=== PATIENT | male | born 1975 | race Caucasian/White ===

== ENCOUNTER 2021-11-15 15:11 | Observation (INO) ==
--- NOTE | 2021-11-15 15:45 | Emergency Department Note ---
Impression & Plan Pneumothorax on right, Fracture, rib, Fall ED Provider Note NAME: KEELY JAIME AGE: 46 SEX: M : 1975 ARRIVES VIA: Walk-In INFORMANT: Patient, ED PROVIDER(S): Doug Landry DO CHIEF COMPLAINT: Chest pain the patient is a 46-year-old male who presented to the emergency department for an evaluation of chest pain. The patient has right-sided chest pain HPI: After a fall last evening. He was shoveling and fell onto his right side. He thinks he might of landed onto his elbow. The patient has very severe chest pain with any movement. He did see his outpatient doctor and had an x-ray which revealed a pneumothorax with a rib fracture. The patient was told to go to the emergency department. He states his pain is moderate to severe. He states his pain is worse with any movement or ambulation. He has never had similar symptoms in the past. He has no significant medical history. He does not have any headache or neck pain. He did not strike his head. He denies having any abdominal pain or back pain. The patient denies having any dizziness upon standing. He does not take blood thinners. ROS: See above HPI for pertinent positives & negatives. A total of 10 systems reviewed and were otherwise negative. PAST MEDICAL HISTORY: See Below PAST SURGICAL HISTORY: See Below FAMILY HISTORY: See Below SOCIAL HISTORY: See Below HOME MEDICATIONS: See Below ALLERGIES: See Below VITALS: See Below PHYSICAL EXAMINATION: GENERAL: The patient is awake and alert. He is somewhat anxious appearing. EYES: The conjunctivae are clear. The pupils are round and reactive. EARS, NOSE, MOUTH AND THROAT: The nose is without any evidence of any deformity. NECK: The neck is nontender and supple. RESPIRATORY: Splinting respirations were noted. Diminished breath sounds are noted in the entire right lung field. There was no tachypnea or conversational dyspnea. CARDIOVASCULAR: Regular rate and rhythm noted there no murmurs rubs or gallops normal S1 normal S2. GASTROINTESTINAL: The abdomen is soft. Abdomen is nontender. BACK: No midline tenderness or or step-off noted range of motion in flexion extension as well as rotation no signs of muscle spasm noted MUSCULOSKELETAL/EXTREMITIES: There is no evidence of gross deformity full range of motion is noted in the hips and shoulders. SKIN: There is no obvious evidence of any rash. There are no petechiae, pallor or cyanosis noted. NEUROLOGIC: Patient is awake alert and oriented x3. Gait was steady. MEDICAL DECISION MAKING: The patient is a 46-year-old male who presented to the emergency department for an evaluation of chest pain. The patient was diagnosed as an outpatient with a pneumothorax. He had a fall last evening. He was not found to be hypotensive. He has no abdominal pain. I repeated his x-ray here and he does have a significant traumatic pneumothorax with a rib fracture. For this reason I consulted with general surgery. They have agreed to evaluate the patient in the emergency department likely for chest tube and further management. I discussed this plan with the patient and he was agreeable. Pain medicine and antibiotics were ordered. Triage Nursing notes reviewed. Prior medical records reviewed Vital Signs: reviewed and remarkable for elevated blood pressure. Differential diagnosis: Fracture, dislocation, contusion, intra-abdominal, pneumothorax, intrathoracic, intracranial, neurologic, compartment syndrome, rhabdomyolysis, as well as other pathologies. ER treatment provided: See below Diagnostics interpreted by me: ECG: none Cardiac Monitoring: An order was placed for continuous cardiac monitoring. The monitor shows a rate of 88 bpm with sinus rhythm. Laboratory studies: As stated above and show below. Imaging studies: See below Consultation(s): I discussed this case with Dr. Gonzalez who is on-call for general surgery. Past Med/Surg History Medical History (Updated 11/15/21 @ 17:22 by Suzie Marin PA-C) GERD (gastroesophageal reflux disease) Social History Smoking Status: Never smoker Preferred Language: Slovenian Feels Safe at Home: Yes Allergies Allergies Allergy/AdvReac Type Severity Reaction Status Date / Time No Known Allergies Allergy Unverified 11/15/21 17:41 Home Meds Home Medications Medication Instructions Recorded Confirmed pantoprazole 40 mg tablet,delayed 40 mg PO QAM 11/15/21 11/15/21 release Results & Data (ED) Vital Signs Vital Signs - 24 hr 11/15/21 15:16 Temperature 36.5 C Temperature Source Oral Pulse Rate 88 Pulse Rhythm Regular Pulse Strength Normal Respiratory Rate 16 Respiratory Effort / Characteristics Non-Labored Respiratory Depth Normal Blood Pressure 166/98 H Blood Pressure Mean 120 Pulse Oximetry 96 Oxygen Delivery Method Room Air Sepsis Recent Fever Within 48 Hours No Sepsis New/Unexplained Change in Mental Status No Sepsis Action Taken by Nursing No Action Required Home Medications Current Medication List: was personally reviewed by me Laboratory Data Attestation: I reviewed the patient's lab results. Result diagrams: 11/15/21 15:44 11/15/21 15:44 Lab Results 11/15/21 11/15/21 11/15/21 Range/Units 15:44 15:44 15:44 WBC 10.18 (4.8-10.8) K/uL RBC 4.80 (4.7-6.1) M/uL Hgb 15.1 (14.0-18.0) g/dL Hct 44.3 (42-52) % MCV 92.3 (80-100) fL MCH 31.5 (25-34) pg MCHC 34.1 (32-36) g/dL RDW Std Deviation 41.6 (36.4-46.3) fL RDW Coeff of Ligia 12.4 (11.5-14.5) % Plt Count 271 (130-400) K/uL MPV 9.4 (7.4-10.4) fL Immature Gran % (Auto) 0.4 % Neut % (Auto) 71.7 % Lymph % (Auto) 19.2 % Cook % (Auto) 7.9 % Eos % (Auto) 0.6 % Baso % (Auto) 0.2 % Neut # (Auto) 7.31 H (1.4-6.5) K/uL Lymph # (Auto) 1.95 (1.2-3.4) K/uL [place] # (Auto) 0.80 H (0.11-0.59) K/uL Eos # (Auto) 0.06 (0-0.5) K/uL Baso # (Auto) 0.02 (0-0.2) K/uL Immature Gran # (Auto) 0.04 H (0.00-0.02) K/uL PT 10.1 (9.0-12.0) Seconds INR 1.0 (0.9-1.1) APTT 25.9 (21.0-31.0) Seconds PTT Ratio 1.0 Sodium 138 (136-145) mmol/L Potassium 3.7 (3.5-5.1) mmol/L Chloride 104 (98-107) mmol/L Carbon Dioxide 27 (21-32) mmol/L Anion Gap 7 (3-11) BUN 11 (6-23) mg/dl Creatinine 1.01 (0.6-1.4) mg/dl Est Cr Clr Drug Dosing 104.8 ml/min Est GFR ( Amer) 101.5 ml/min Est GFR (Non-Af Amer) 87.5 ml/min BUN/Creatinine Ratio 10.9 (10-20) Glucose 128 H (70-99(Fasting)) mg/dl Calcium 9.2 (8.5-10.1) mg/dl Magnesium 2.1 (1.7-2.4) mg/dl Total Bilirubin 0.6 (0.2-1.0) mg/dl AST 21 (13-39) U/L ALT 28 (7-52) U/L Alkaline Phosphatase 75 (34-104) U/L Troponin I < 0.03 (0-0.04) ng/ml Total Protein 7.4 (6.0-8.3) gm/dl Albumin 4.4 (3.4-5.0) gm/dl Globulin 3.0 (2.5-4.0) gm/dl Albumin/Globulin Ratio 1.5 (0.9-2) SARS-CoV-2, RNA, NAAT (NEGATIVE) 11/15/21 Range/Units 16:26 WBC (4.8-10.8) K/uL RBC (4.7-6.1) M/uL Hgb (14.0-18.0) g/dL Hct (42-52) % MCV (80-100) fL MCH (25-34) pg MCHC (32-36) g/dL RDW Std Deviation (36.4-46.3) fL RDW Coeff of Ligia (11.5-14.5) % Plt Count (130-400) K/uL MPV (7.4-10.4) fL Immature Gran % (Auto) % Neut % (Auto) % Lymph % (Auto) % [place] % (Auto) % Eos % (Auto) % Baso % (Auto) % Neut # (Auto) (1.4-6.5) K/uL Lymph # (Auto) (1.2-3.4) K/uL [place] # (Auto) (0.11-0.59) K/uL Eos # (Auto) (0-0.5) K/uL Baso # (Auto) (0-0.2) K/uL Immature Gran # (Auto) (0.00-0.02) K/uL PT (9.0-12.0) Seconds INR (0.9-1.1) APTT (21.0-31.0) Seconds PTT Ratio Sodium (136-145) mmol/L Potassium (3.5-5.1) mmol/L Chloride (98-107) mmol/L Carbon Dioxide (21-32) mmol/L Anion Gap (3-11) BUN (6-23) mg/dl Creatinine (0.6-1.4) mg/dl Est Cr Clr Drug Dosing ml/min Est GFR ( Amer) ml/min Est GFR (Non-Af Amer) ml/min BUN/Creatinine Ratio (10-20) Glucose (70-99(Fasting)) mg/dl Calcium (8.5-10.1) mg/dl Magnesium (1.7-2.4) mg/dl Total Bilirubin (0.2-1.0) mg/dl AST (13-39) U/L ALT (7-52) U/L Alkaline Phosphatase (34-104) U/L Troponin I (0-0.04) ng/ml Total Protein (6.0-8.3) gm/dl Albumin (3.4-5.0) gm/dl Globulin (2.5-4.0) gm/dl Albumin/Globulin Ratio (0.9-2) SARS-CoV-2, RNA, NAAT NEGATIVE (NEGATIVE) Administered Medications Morphine Sulfate (Morphine Sulfate 4 Mg/Ml 1 Ml Carp\Vial) 4 mg IV Q30M PRN PRN Reason: Pain Stop: 11/29/21 15:57 Last Admin: 11/15/21 17:03 Dose: 4 mg Documented by: [id number] Discontinued Medications Lidocaine HCl (Lidocaine 1% Local 20 Ml Vial) Confirm Administered Dose 20 ml .ROUTE .STK-MED ONE Stop: 11/15/21 16:28 Last Admin: 11/15/21 17:02 Dose: 20 ml Documented by: [id number] Ondansetron HCl (Ondansetron Inj 2 Mg/Ml 2 Ml Vial) 4 mg IV NOW STA Stop: 11/15/21 15:59 Last Admin: 11/15/21 17:02 Dose: 4 mg Documented by: [id number] Imaging Data Radiologist's Impression: Chest X-Ray 11/15/21 15:20 SINGLE VIEW CHEST CLINICAL HISTORY: Dyspnea. FINDINGS: An AP, portable, upright chest radiograph is obtained. No prior studi es are available for comparison at the time of dictation. The cardiomediastinal silhouette is unremarkable. There is a moderate to large right pneumothorax with 5.5 cm of apical pleural separation. No left-sided pneumothorax is seen. Airspace opacities are seen at the right lung base. No large pleural effusion is identified. The left lung appears clear. Question a right anterolateral 9th rib fracture. IMPRESSION: 1. Moderate to large right pneumothorax. 2. Airspace opacities at the right lung base could represent atelectasis versus a mild infectious/inflammatory pneumonitis. 3. Left lung appears clear. 4. Question a right anterolateral 9th rib fracture. ACT 112: Negative or not required by law. Electronically signed by: Humberto Leal M.D. 11/15/2021 3:53 PM Discharge Plan Visit Data Patient Disposition: Being Evaluated by Surgeon Forms Stand Alone Forms: [facility] Prescriptions Prescriptions: No Action pantoprazole 40 mg tablet,delayed release (DR/EC) 40 mg PO QAM RF: 0 Referrals Referrals: PCP,NO [Primary Care Provider] - Discharge Problem: Fracture, rib Qualifiers: Encounter type: initial encounter Rib fracture type: single rib Fracture type: closed Laterality: right Qualified Code(s): S22.31XA - Fracture of one rib, right side, initial encounter for closed fracture Fall Qualifiers: Encounter type: initial encounter Qualified Code(s): W19.XXXA - Unspecified fall, initial encounter
--- NOTE | 2021-11-15 15:54 | XRay Report ---
SINGLE VIEW CHEST CLINICAL HISTORY: Dyspnea. FINDINGS: An AP, portable, upright chest radiograph is obtained. No prior studies are available for c omparison at the time of dictation. The cardiomediastinal silhouette is unremarkable. There is a mod erate to large right pneumothorax with 5.5 cm of apical pleural separation. No left-sided pneumothora x is seen. Airspace opacities are seen at the right lung base. No large pleural effusion is identifie d. The left lung appears clear. Question a right anterolateral 9th rib fracture. IMPRESSION: 1. Moderate to large right pneumothorax. 2. Airspace opacities at the right lung base could represent atelectasis versus a mild infectious/inf lammatory pneumonitis. 3. Left lung appears clear. 4. Question a right anterolateral 9th rib fracture. ACT 112: Negative or not required by law. Electronically signed by: Humberto Leal M.D. 11/15/2021 3:53 PM
[2021-11-15] MEDS ORDERED: ceFAZolin 2000MG 2,000 MG/15 ML SYR IV STA (15:56)
[2021-11-15] MEDS ORDERED: ONDANSETRON INJ 2 MG/ML 2 ML VIAL IV STA (15:58)
[2021-11-15] MEDS ORDERED: MoRPHine SULFATE 4 MG/ML 1 ML CARP\\VIAL IV PRN (15:58)
[2021-11-15 15:59] LABS: Basophils # (auto) 0.02 K/uL (0-0.2); Basophils % (auto) 0.2 %; Eosinophils # (auto) 0.06 K/uL (0-0.5); Eosinophils % (auto) 0.6 %; Hematocrit (blood only) 44.3 % (42-52); Hemoglobin 15.1 g/dL (14.0-18.0); Immature Granulocytes # (auto) 0.04 K/uL (0.00-0.02); Immature Granulocytes % (auto) 0.4 %; Lymphocytes # (auto) 1.95 K/uL (1.2-3.4); Lymphocytes % (auto) 19.2 %; Mean Corpuscular Hemoglobin 31.5 pg (25-34); Mean Corpuscular Hgb Conc 34.1 g/dL (32-36); Mean Corpuscular Volume 92.3 fL (80-100); Mean Platelet Volume 9.4 fL (7.4-10.4); Monocytes % (auto) 7.9 %; Neutrophils # (auto) 7.31 K/uL (1.4-6.5); Neutrophils % (auto) 71.7 %; Platelet Count 271 K/uL (130-400); RDW Coefficient of Variation 12.4 % (11.5-14.5); RDW Standard Deviation 41.6 fL (36.4-46.3); White Blood Count 10.18 K/uL (4.8-10.8)
--- NOTE | 2021-11-15 16:00 | History & Physical Report ---
Date of Service November 15, 2021 Assessment & Plan (1) Pneumothorax on right: (2) Fracture, rib: (3) Fall: Plan: 46 year-old male s/p fall onto right side while shoveling snow last evening. Chest xray showing moderate to large right pneumothorax with possible right 9th rib fracture. Hemodynamically stable. Plan: Discussed xray findings with patient showing right sided pneumothorax being moderate to large size. Need for right thoracostomy placement under local anesthesia. Dr. Gonzalez discussed procedure and risks and informed consent obtained He will be admitted for observation and chest tube will be hooked to suction for at least 24 hours and re-evaluated tomorrow morning with xray. Dr. Gonzalez has seen and examined pt, obtained consent agrees with above. History of Present Illness Chief Complaint: s/p fall last evening, right sided chest pain Primary Care Provider: NO PCP 46 year-old male who was shoveling snow last night and fell on ice onto his right side and elbow. States he had sudden change of voice and pain but no significant shortness of breath. Was able to sleep last night and went to his primary care doctor who ordered chest xray which showed rib fracture and pneumothorax. He presents here for further treatment. Never had anything like this before. No prior chest surgery or lung procedures. Denies of any history of spontaneous pneumothorax. Denies of any bleeding disorders. Allergies Allergy/AdvReac Type Severity Reaction Status Date / Time No Known Allergies Allergy Unverified 11/15/21 17:22 Past Med/Surg History Medical History (Updated 11/15/21 @ 17:22 by Suzie Marin PA-C) GERD (gastroesophageal reflux disease) Social History Smoking Status: Never smoker Preferred Language: [place] Islander Feels Safe at Home: Yes Physical Exam Constitutional: WD/WN, vitals as above no acute distress and not ill appearing Neck: normal visual inspection and trachea midline Respiratory: normal respiratory effort; no respiratory distress, no labored breathing and no retractions Auscultation: + diminished lung sounds (Right upper lung ) Cardiovascular: RRR, no murmur, no edema Chest (Breasts): Chest: normal inspection of chest (no ecchymosis of the right chest wall) Gastrointestinal (Abdomen): Inspection/Auscultation: abdomen normal to inspection; abdomen not distended Percussion/Palpation: abdomen soft; abdomen nontender, no guarding and abdomen not rigid Skin: no rashes, warm and dry Psychiatric: A+Ox3, euthymic affect Results & Data Results & Data ([facility]) Vital Signs (Past 12 Hours) Vital Signs Temp Pulse Resp BP Pulse Ox 11/15/21 15:16 36.5 C 88 16 166/98 H 96 Laboratory Results 11/15/21 11/15/21 11/15/21 Range/Units 16:26 15:44 15:44 WBC (4.8-10.8) K/uL RBC (4.7-6.1) M/uL Hgb (14.0-18.0) g/dL Hct (42-52) % MCV (80-100) fL MCH (25-34) pg MCHC (32-36) g/dL RDW Std Deviation (36.4-46.3) fL RDW Coeff of Ligia (11.5-14.5) % Plt Count (130-400) K/uL MPV (7.4-10.4) fL Immature Gran % (Auto) % Neut % (Auto) % Lymph % (Auto) % [place] % (Auto) % Eos % (Auto) % Baso % (Auto) % Neut # (Auto) (1.4-6.5) K/uL Lymph # (Auto) (1.2-3.4) K/uL [place] # (Auto) (0.11-0.59) K/uL Eos # (Auto) (0-0.5) K/uL Baso # (Auto) (0-0.2) K/uL Immature Gran # (Auto) (0.00-0.02) K/uL PT 10.1 (9.0-12.0) Seconds INR 1.0 (0.9-1.1) APTT 25.9 (21.0-31.0) Seconds PTT Ratio 1.0 Sodium 138 (136-145) mmol/L Potassium 3.7 (3.5-5.1) mmol/L Chloride 104 (98-107) mmol/L Carbon Dioxide 27 (21-32) mmol/L Anion Gap 7 (3-11) BUN 11 (6-23) mg/dl Creatinine 1.01 (0.6-1.4) mg/dl Est Cr Clr Drug Dosing 104.8 ml/min Est GFR ( Amer) 101.5 ml/min Est GFR (Non-Af Amer) 87.5 ml/min BUN/Creatinine Ratio 10.9 (10-20) Glucose 128 H (70-99(Fasting)) mg/dl Calcium 9.2 (8.5-10.1) mg/dl Magnesium 2.1 (1.7-2.4) mg/dl Total Bilirubin 0.6 (0.2-1.0) mg/dl AST 21 (13-39) U/L ALT 28 (7-52) U/L Alkaline Phosphatase 75 (34-104) U/L Troponin I < 0.03 (0-0.04) ng/ml Total Protein 7.4 (6.0-8.3) gm/dl Albumin 4.4 (3.4-5.0) gm/dl Globulin 3.0 (2.5-4.0) gm/dl Albumin/Globulin Ratio 1.5 (0.9-2) SARS-CoV-2, RNA, NAAT NEGATIVE (NEGATIVE) 11/15/21 Range/Units 15:44 WBC 10.18 (4.8-10.8) K/uL RBC 4.80 (4.7-6.1) M/uL Hgb 15.1 (14.0-18.0) g/dL Hct 44.3 (42-52) % MCV 92.3 (80-100) fL MCH 31.5 (25-34) pg MCHC 34.1 (32-36) g/dL RDW Std Deviation 41.6 (36.4-46.3) fL RDW Coeff of Ligia 12.4 (11.5-14.5) % Plt Count 271 (130-400) K/uL MPV 9.4 (7.4-10.4) fL Immature Gran % (Auto) 0.4 % Neut % (Auto) 71.7 % Lymph % (Auto) 19.2 % [place] % (Auto) 7.9 % Eos % (Auto) 0.6 % Baso % (Auto) 0.2 % Neut # (Auto) 7.31 H (1.4-6.5) K/uL Lymph # (Auto) 1.95 (1.2-3.4) K/uL [place] # (Auto) 0.80 H (0.11-0.59) K/uL Eos # (Auto) 0.06 (0-0.5) K/uL Baso # (Auto) 0.02 (0-0.2) K/uL Immature Gran # (Auto) 0.04 H (0.00-0.02) K/uL PT (9.0-12.0) Seconds INR (0.9-1.1) APTT (21.0-31.0) Seconds PTT Ratio Sodium (136-145) mmol/L Potassium (3.5-5.1) mmol/L Chloride (98-107) mmol/L Carbon Dioxide (21-32) mmol/L Anion Gap (3-11) BUN (6-23) mg/dl Creatinine (0.6-1.4) mg/dl Est Cr Clr Drug Dosing ml/min Est GFR ( Amer) ml/min Est GFR (Non-Af Amer) ml/min BUN/Creatinine Ratio (10-20) Glucose (70-99(Fasting)) mg/dl Calcium (8.5-10.1) mg/dl Magnesium (1.7-2.4) mg/dl Total Bilirubin (0.2-1.0) mg/dl AST (13-39) U/L ALT (7-52) U/L Alkaline Phosphatase (34-104) U/L Troponin I (0-0.04) ng/ml Total Protein (6.0-8.3) gm/dl Albumin (3.4-5.0) gm/dl Globulin (2.5-4.0) gm/dl Albumin/Globulin Ratio (0.9-2) SARS-CoV-2, RNA, NAAT (NEGATIVE) Diagnostic Findings SINGLE VIEW CHEST CLINICAL HISTORY: Dyspnea. FINDINGS: An AP, portable, upright chest radiograph is obtained. No prior studies are available for comparison at the time of dictation. The cardiomediastinal silhouette is unremarkable. There is a moderate to large right pneumothorax with 5.5 cm of apical pleural separation. No left-sided pneumothorax is seen. Airspace opacities are seen at the right lung base. No large pleural effusion is identified. The left lung appears clear. Question a right anterolateral 9th rib fracture. IMPRESSION: 1. Moderate to large right pneumothorax. 2. Airspace opacities at the right lung base could represent atelectasis versus a mild infectious/inflammatory pneumonitis. 3. Left lung appears clear. 4. Question a right anterolateral 9th rib fracture. Code Status & VTE Plan VTE Prophylaxis Plan VTE Prophylaxis will be ordered: Yes (1) Fracture, rib Encounter type: initial encounter Fracture type: closed Laterality: right Rib fracture type: single rib Qualified Code(s): S22.31XA - Fracture of one rib, right side, initial encounter for closed fracture (2) Fall Encounter type: initial encounter Qualified Code(s): W19.XXXA - Unspecified fall, initial encounter
[2021-11-15 16:10] LABS: Partial Thromboplastin Time 25.9 Seconds (21.0-31.0); Prothrombin Time 10.1 Seconds (9.0-12.0)
[2021-11-15 16:22] LABS: Troponin I < 0.03 ng/ml (0-0.04)
[2021-11-15 16:23] LABS: Alanine Aminotransferase 28 U/L (7-52); Albumin Globulin Ratio 1.5 (0.9-2); Albumin Level 4.4 gm/dl (3.4-5.0); Alkaline Phosphatase 75 U/L (34-104); Anion Gap 7 (3-11); Aspartate Aminotransferase 21 U/L (13-39); BUN Creatinine Ratio 10.9 (10-20); Bilirubin,Total 0.6 mg/dl (0.2-1.0); Blood Urea Nitrogen 11 mg/dl (6-23); Calcium 9.2 mg/dl (8.5-10.1); Carbon Dioxide 27 mmol/L (21-32); Chloride 104 mmol/L (98-107); Creatinine Clr Calc Pharmacy 104.8 ml/min; Est GFR (African American) 101.5 ml/min; Est GFR (Non-African American) 87.5 ml/min; Glucose 128 mg/dl (70-99(Fasting)); Magnesium 2.1 mg/dl (1.7-2.4); Potassium 3.7 mmol/L (3.5-5.1); Sodium 138 mmol/L (136-145); Total Protein 7.4 gm/dl (6.0-8.3)
[2021-11-15] MEDS ORDERED: LIDOCAINE 1% LOCAL 20 ML VIAL ONE (16:27)
--- NOTE | 2021-11-15 17:24 | Operative Report ---
Post Operative Report Pre & Post Diagnosis Right sided pneumothorax I identified the patient and participated in the time-out.: Yes Procedure Right-sided chest tube placement Surgeon Thee Gonzalez MD Chemical Processing Supervisor none Estimated Blood Loss 2 Findings Consistent with Post-Op Diagnosis Reexpansion of the lung upon entry into thorax Specimens None Drains 20 [place] chest tube Anesthesia Type Local Complications No immediate complications Indications Right-sided pneumothorax Description of Procedure The patient was seen in the emergency department. Chest x-ray was reviewed which confirmed a large right sided pneumothorax. He was placed on the stretcher with his arm over his head. He was prepped and draped in the normal sterile fashion. 1% lidocaine was injected into and around the fifth intercostal space on the right side in the midaxillary line. Incision was made with a 15 blade scalpel and was carried into the subcutaneous tissue. I tunneled down to the fifth rib and entered the pleural space just above the fifth rib. A large alegre of air confirmed placement. I probed the pleural cavity with my index finger, and there were no adhesions noted in the thoracic cavity. A 20 [place] chest tube was threaded into the pleural space and secured with a #1 silk suture. The tube was hooked to the Pleur-evac suction device to 20 cm of wall suction. The tube was secured with an occlusive dressing to the chest wall. A chest x-ray is pending. He tolerated the procedure without complication. I attest to the content of the Intraoperative Record and any orders documented therein. Any exceptions are noted below.
--- NOTE | 2021-11-15 18:06 | XRay Report ---
XR chest 1V portable CLINICAL HISTORY: s/p right sided chest tube placement TECHNIQUE: Single frontal radiograph of the chest was obtained. Comparison: Comparison is made to chest one view 11/15/2021 FINDINGS: A right chest tube has been placed. The cardiomediastinal silhouette is normal. Stable faint right nannette ng base opacity. Resolution of right pneumothorax. IMPRESSION: Status post placement of right chest tube with interval resolution of right pneumothorax. ACT 112: Negative or not required by law. Electronically signed by: Bubba Zamorano M.D. 11/15/2021 6:05 PM
[2021-11-15] MEDS ORDERED: PROMETHAZINE HCL 12.5 MG in SODIUM CHLORIDE 0.9% 50 ML IV PRN (20:35)
[2021-11-15] MEDS ORDERED: KETOROLAC 30 MG/ML VIAL IV PRN (20:35)
[2021-11-15] MEDS ORDERED: oxyCODONE/ACETAMINOPHEN 5mg/325mg TAB PO PRN (20:35)
[2021-11-15] MEDS: MoRPHine SULFATE 2 MG/ML CARP IV PRN (21:05)
[2021-11-15] MEDS: ENOXAPARIN INJ 40 MG/0.4 ML SYR SQ SCH (21:49)
[2021-11-16] MEDS: ceFAZolin 2000MG 2,000 MG/15 ML SYR IV SCH ×3 (06:12→22:12)
--- NOTE | 2021-11-16 09:04 | XRay Report ---
XR chest 1V portable CLINICAL HISTORY: s/p placement of right thoracostomy tube TECHNIQUE: Single frontal radiograph of the chest was obtained. Comparison: Comparison is made to chest one view 11/15/2021 FINDINGS: Right chest tube is unchanged in position. Cardiomegaly is noted. Faint bibasilar airspace opacities are seen. No evidence of pleural effusion or pneumothorax. IMPRESSION: Stable position of right chest tube with the tip and side-port within the right thoracic cavity. No p neumothorax is seen. There are faint bilateral airspace opacities compatible with atelectasis with or without superimposed aspiration/pneumonia. ACT 112: Negative or not required by law. Electronically signed by: Bubba Zamorano M.D. 11/16/2021 9:03 AM
--- NOTE | 2021-11-16 09:30 | Surgery Progress Note ---
Date of Service November 16, 2021 Assessment & Plan (1) Pneumothorax on right: (2) Fracture, rib: (3) Fall: Plan: s/p placement of right thoracostomy tube at bedside CXR this am with resolution of pneumothorax afebrile, vss no air leak present Plan: Continue pain management as needed continue regular diet continue chest tube to wall suction may get up out of bed to chair and slowly ambulate room while maintaining chest tube to wall suction Discussed with Dr. Gonzalez who will evaluate patient later today. Admission and Anticipated Discharge Date Admission Date: November 15, 2021 Subjective feeling better, pain is controlled, had Percocet this morning no shortness of breath, able to take deep breaths with incentive spirometer no n,v, tolerating diet bored, wants to get up and move Physical Exam Constitutional: WD/WN, vitals as above no acute distress and not ill appearing Neck: normal visual inspection and trachea midline Respiratory: normal respiratory effort, lungs clear to auscultation normal respiratory effort; no respiratory distress, no labored breathing, no retractions and no cough Chest (Breasts): Additional Comments: Right thoracostomy tube present, dressing intact No air leak with deep breath no drainage in pleur-vac Skin: no rashes, warm and dry Psychiatric: A+Ox3, euthymic affect Results & Data ([facility]) Vital Signs (Past 12 Hours) Vital Signs Pulse Resp BP Pulse Ox Pulse Ox 11/16/21 08:00 78 16 119/84 95 11/16/21 04:00 70 14 129/94 93 11/16/21 00:00 82 17 120/83 92 11/15/21 21:58 85 20 157/104 H 94 11/15/21 21:57 94 Diagnostic Findings XR chest 1V portable CLINICAL HISTORY: s/p placement of right thoracostomy tube TECHNIQUE: Single frontal radiograph of the chest was obtained. Comparison: Comparison is made to chest one view 11/15/2021 FINDINGS: Right chest tube is unchanged in position. Cardiomegaly is noted. Faint bibasilar airspace opacities are seen. No evidence of pleural effusion or pneumothorax. IMPRESSION: Stable position of right chest tube with the tip and side-port within the right thoracic cavity. No pneumothorax is seen. There are faint bilateral airspace opacities compatible with atelectasis with or without superimposed aspiration/pneumonia. (1) Fracture, rib Encounter type: initial encounter Fracture type: closed Laterality: right Rib fracture type: single rib Qualified Code(s): S22.31XA - Fracture of one rib, right side, initial encounter for closed fracture (2) Fall Encounter type: initial encounter Qualified Code(s): W19.XXXA - Unspecified fall, initial encounter
--- NOTE | 2021-11-16 12:14 | Electrocardiogram Report ---
Test Reason : Blood Pressure : / mmHG Vent. Rate : 083 BPM Atrial Rate : 083 BPM P-R Int : 168 ms QRS Dur : 090 ms QT Int : 388 ms P-R-T Axes : 045 -14 013 degrees QTc Int : 455 ms Sinus rhythm with occasional Premature ventricular complexes Possible Left atrial enlargement Borderline ECG No previous ECGs available Confirmed by Manav Moore ([id number]) on 11/16/2021 12:13:40 PM Referred By: REFERRED SELF Confirmed By:Napoleon Moore
[2021-11-16] MEDS: ONDANSETRON INJ 2 MG/ML 2 ML VIAL IV PRN ×2 (16:04→21:23)
[2021-11-16] MEDS: ENOXAPARIN INJ 40 MG/0.4 ML SYR SQ SCH (21:22)
[2021-11-16] MEDS: MoRPHine SULFATE 2 MG/ML CARP IV PRN (21:23)
[2021-11-17] MEDS: ceFAZolin 2000MG 2,000 MG/15 ML SYR IV SCH (07:58)
--- NOTE | 2021-11-17 08:10 | XRay Report ---
XR chest 1V portable HISTORY: 46 years-old Male eval for pneumo, R thoracostomy tube off suction follow-up study in a pat ient with right-sided chest tube COMPARISON: Chest radiograph 11/16/2021 TECHNIQUE: AP view of the chest. FINDINGS: The cardiac silhouette is mildly enlarged. There is a right-sided chest tube with distal tip projecte d superior to the right hilum which appears unchanged. No definite pneumothorax or large pleural effu dena. Linear subsegmental bibasilar densities. The bones appear grossly intact. IMPRESSION: 1. Unchanged positioning of the right-sided chest tube. No pneumothorax identified. 2. Persistent bibasilar opacities suggestive of atelectasis. 3. Cardiomegaly. ACT 112: Negative or not required by law. The above report was generated using voice recognition software. It may contain grammatical, syntax o r spelling errors. Electronically signed by: Delroy Amato M.D. 11/17/2021 8:09 AM
--- NOTE | 2021-11-17 11:55 | XRay Report ---
XR chest 1V portable HISTORY: 46 years-old Male s/p removal of R chest tube follow-up study in a patient with recent righ t-sided chest tube removal COMPARISON: Chest radiograph of same day at 6:04 AM TECHNIQUE: Portable AP view of the chest FINDINGS: Status post removal of the right-sided chest tube. No pneumothorax identified. There is minimal subcu taneous emphysema of the right lateral chest wall. Cardiac silhouette is mildly enlarged. Mild right hemidiaphragmatic elevation with linear subsegmental bibasilar densities. No large pleural effusion. The bones appear grossly intact. IMPRESSION: 1. Status post removal of the right-sided chest tube. No pneumothorax identified. 2. Trace subcutaneous emphysema of the right lateral chest wall. 3. Mild subsegmental bibasilar densities redemonstrated suggestive of atelectasis. ACT 112: Negative or not required by law. The above report was generated using voice recognition software. It may contain grammatical, syntax o r spelling errors. Electronically signed by: Delroy Amato M.D. 11/17/2021 11:54 AM
--- NOTE | 2021-11-17 12:13 | Surgery Progress Note ---
Date of Service November 17, 2021 Assessment & Plan (1) Pneumothorax on right: (2) Fracture, rib: (3) Fall: Plan: s/p placement of right thoracostomy tube at bedside 11/15/2021 Off suction at 10 pm last evening, CXR this am showing no pneumothorax afebrile, vss no air leak present Plan: Right thoracostomy tube removed and occlusive dressing applied. repeat CXR showing no pneumo. Plan for discharge today discharge instructions reviewed Rx for Percocet as needed 1 week follow-up with Dr. Carlos Gonzalez has seen and examined pt, agrees with above. Admission and Anticipated Discharge Date Admission Date: November 15, 2021 Subjective pain controlled no shortness of breath since suction turned off at 10 pm getting irritable, wants to get out of bed and walk around tolerating diet Physical Exam Constitutional: WD/WN, vitals as above no acute distress and not ill appearing Neck: normal visual inspection and trachea midline Respiratory: normal respiratory effort; no respiratory distress, no labored breathing, no retractions and no cough Chest (Breasts): Additional Comments: Right Chest with thoracostomy tube present, intact dressing. No air leak on deep breath Skin: no rashes, warm and dry Psychiatric: A+Ox3, euthymic affect Results & Data ([facility]) Vital Signs (Past 12 Hours) Vital Signs Pulse Resp BP Pulse Ox 11/17/21 08:00 87 21 137/106 H 93 11/17/21 04:00 86 18 156/106 H 93 Diagnostic Findings XR chest 1V portable 0600 with R thoracostomy tube off suction HISTORY: 46 years-old Male eval for pneumo, R thoracostomy tube off suction follow-up study in a patient with right-sided chest tube COMPARISON: Chest radiograph 11/16/2021 TECHNIQUE: AP view of the chest. FINDINGS: The cardiac silhouette is mildly enlarged. There is a right-sided chest tube with distal tip projected superior to the right hilum which appears unchanged. No definite pneumothorax or large pleural effusion. Linear subsegmental bibasilar densities. The bones appear grossly intact. IMPRESSION: 1. Unchanged positioning of the right-sided chest tube. No pneumothorax identified. 2. Persistent bibasilar opacities suggestive of atelectasis. 3. Cardiomegaly. XR chest 1V portable s/p removal of Right thoracostomy tube HISTORY: 46 years-old Male s/p removal of R chest tube follow-up study in a patient with recent right-sided chest tube removal COMPARISON: Chest radiograph of same day at 6:04 AM TECHNIQUE: Portable AP view of the chest FINDINGS: Status post removal of the right-sided chest tube. No pneumothorax identified. There is minimal subcutaneous emphysema of the right lateral chest wall. Cardiac silhouette is mildly enlarged. Mild right hemidiaphragmatic elevation with linear subsegmental bibasilar densities. No large pleural effusion. The bones appear grossly intact. IMPRESSION: 1. Status post removal of the right-sided chest tube. No pneumothorax identified. 2. Trace subcutaneous emphysema of the right lateral chest wall. 3. Mild subsegmental bibasilar densities redemonstrated suggestive of atelectasis. (1) Fracture, rib Encounter type: initial encounter Fracture type: closed Laterality: right Rib fracture type: single rib Qualified Code(s): S22.31XA - Fracture of one rib, right side, initial encounter for closed fracture (2) Fall Encounter type: initial encounter Qualified Code(s): W19.XXXA - Unspecified fall, initial encounter
--- NOTE | 2021-11-18 17:26 | Discharge Summary ---
Date of Service November 18, 2021 Admission HPI Per Admitting Provider 46 year-old male who was shoveling snow last night and fell on ice onto his right side and elbow. States he had sudden change of voice and pain but no significant shortness of breath. Was able to sleep last night and went to his primary care doctor who ordered chest xray which showed rib fracture and pneumothorax. He presents here for further treatment. Never had anything like this before. No prior chest surgery or lung procedures. Denies of any history of spontaneous pneumothorax. Denies of any bleeding disorders. Principal Diagnosis Right-sided pneumothorax Discharge Data Allergies Allergy/AdvReac Type Severity Reaction Status Date / Time No Known Allergies Allergy Unverified 11/15/21 17:41 Consultations 11/15/21 15:56 Consult General Surgery Stat Hospital Course (1) Pneumothorax on right: (2) Fracture, rib: He presents the hospital 1 day following a fall. Chest x-ray demonstrated a large pneumothorax on the right side. A right-sided chest tube was placed in the emergency department, the details of which are dictated in a separate operative note. Post procedure x-ray demonstrated complete resolution of the pneumothorax. There is minimal air leak. He was kept on wall suction at 20 cm for over 24 hours and then switched to waterseal. Repeat chest x-ray 6 hours later demonstrated no return of the pneumothorax. The chest tube was pulled, and post x-ray demonstrated no pneumothorax on the right. Throughout his hospital stay, his diet was regular, his pain was controlled with IV and oral pain medications, DVT prophylaxis with SCD boots and Lovenox. By post procedure day 2, the chest tube was out, he had no pneumothorax, and he was discharged home in stable condition. He will follow up in clinic in 1 week. Total Time Total Time Spent Total Time Spent (In Minutes): 30 minutes Discharge Plan Discharge Items Patient Disposition: Home - Self-Care Reason For Visit: RIGHT PNEUMOTHORAX Discharge Diagnosis: Right pneumothorax Right rib fracture Activity: Per Instructions section Non-emergency contact: Primary Care Provider and Surgeon Call non-emergency contact if: you have any medication questions, your pain is not controlled, your pain is worsening, your pain is concerning for you, you have a fever, your temperature is above 101, your wound has increased redness, your wound has increased drainage and your wound pain has increased Follow-up/Referrals: PCP,NO [Primary Care Provider] - Diet: Regular Addtl Attending Provider Instructions: Post-Surgical ~Discharge Instructions Activity Recommendations: - lifting limitation: (10 pounds for 4 weeks), - exercise/sex/sports limit: (nonstrenuous for at least 4 weeks, no contact sports/activities for 4 weeks), - driving or machine use limit: (No driving while taking narcotic pain medication or until pain free), - Shower/bathe limit: (may shower beginning tomorrow) Diet: - Resume previous diet SPECIAL CARE INSTRUCTIONS: - May shower in 24 hours. Keep the right chest wall dry as you need to leave the occlusive dressing on for 48-72 hours. - Can remove the dressing in 48-72 hours. - Call the surgeon's office with any questions or concerns - - (ex. temperature higher than 101 degrees F, excessive bleeding or pain). MEDICATIONS: - Resume previous medications unless instructed otherwise by your surgeon. - May alternate extra strength Tylenol and Ibuprofen as needed for mild to moderate pain - 650 mg Tylenol every 6 hours as needed - Ibuprofen 600 mg every 6 hours as needed (take with food and limit duration if taken continuously for no more than 3 days given your history of GERD/heartburn) - Percocet 1 every 4 hours, as needed for moderate to severe pain - Recommend daily stool softener while taking narcotic pain medication to prevent constipation/straining. FOLLOW UP VISIT: - If not already scheduled, please call the office to schedule a one week follow-up appointment with Dr. Gonzalez. Office number Pending Studies at Discharge: No Stand[facility]Alone [facility]: [facility] Medications and DC Order Prescriptions: New oxycodone-acetaminophen [Percocet] 5-325 mg tablet 1 tab PO Q4H PRN (Reason: pain) Qty: 18 RF: 0 Continued pantoprazole 40 mg tablet,delayed release (DR/EC) 40 mg PO QAM RF: 0 Discharge Orders: Discharge Order (Routine); Ordered 11/17/21 Ordered By: Suzie Marin Admission Data Admit Date/Time: 11/15/21 17:32 Attending Provider: Thee Gonzalez Admit Provider: Thee Gonzalez Primary Care Provider: PCP,NO Other Providers: Thee Gonzalez Other Interventions: Discharge Summary Assessment (RN) Last Done: 11/17/21 13:30
== END 2021-11-17 13:45 | disposition home or self-care (01) ==
LOC: EDINP 15:11 → ED 15:11 → EDINP 20:33